=== PATIENT | male | born 1995 | race Caucasian/White ===

== ENCOUNTER 2016-04-03 13:48 | Emergency (ER) | payer OTHER ==
[~2016-04-03] VITALS: Ht 175.3 cm; Wt 63.5 kg
[2016-04-03 13:54] VITALS: BP 107/70
[2016-04-03] MEDS ORDERED: ZOFRAN ODT4 M1 SL (14:44)
[2016-04-03] MEDS ORDERED: CLONIDINE HCL0.1 MG PO (14:44)
--- NOTE | 2016-04-03 14:45 | ED GENERAL ADULT ---
History of Present Illness General Chief Complaint: ETOH/Drug Related Complaint Stated Complaint: "UM I WANT DETOX" HEROINE Source: patient, family Exam Limitations: no limitations Vital Signs & Intake/Output Vital Signs & Intake/Output Vital Signs Date Time Temp Pulse Resp B/P Pulse O2 O2 Flow FiO2 Ox Delivery Rate 04/03 1440 Room Air Room Air 04/03 1354 98.5 93 20 107/70 99 Room Air Allergies Coded Allergies: No Known Allergies (04/03/16) Reconcile Medications Clonidine HCl 0.1 MG TABLET 1 TAB PO BID PRN anxiety Ondansetron (Zofran Odt) 4 MG TAB.RAPDIS 1 TAB SL TID PRN nausea Triage Note: PT REQUEST HEROIN DETOX, STATES LAST USED LAST NIGHT. STATES HE USES 2 BAGS A DAY Triage Nurses Notes Reviewed? yes Onset: Gradual Duration: intermittent Timing: recent history Injury Environment: home Severity: moderate Severity Numbers: 7 No Modifying Factors: none HPI: Patient is a 21-year-old male coming into the emergency department requesting detox from heroin. He reports that his been using on and off for the past 7 months or so. Denies any other drug use. He reports that he states that heroin. Denies injecting. He feels anxious and he doesn't use. Uses about 2 bags a day when he is on a "nickerson". Denies any suicidal or homicidal ideation. Denies any nausea vomiting fever chills chest pain or shortness of breath. no History detox in the past. (SANGEETHA BERGMAN) Past History Travel History Traveled to [place] past 21 day No Medical History Any Pertinent Medical History? see below for history Psychiatric: substance abuse Blood Disorders: HIV Surgical History Surgical History: non-contributory Psychosocial History What is your primary language Liberian Tobacco Use: Current Daily Use Daily Tobacco Use Amount/Type: => 5 Cigarettes daily ETOH Use: occasional use Illicit Drug Use: heroin Family History Hx Contributory? No (SANGEETHA BERGMAN) Review of Systems Review of Systems Constitutional: Reports: no symptoms. Comments Review of systems: See HPI, All other systems negative. Constitutional, no chills fever or weight loss HEENT: No visual changes no sore throat no congestion Cardiovascular: No chest pain Skin, no jaundice no rashes Respiratory: No dyspnea cough sputum or hemoptysis GI: No nausea no vomiting : No dysuria No hematuria Muscle skeletal: no back pain, no neck pain, Neurologic: No numbness no confusion Psych: No stress anxiety Immunology: No splenectomy or history of AIDS (SANGEETHA BERGMAN) Physical Exam Physical Exam General Appearance: well developed/nourished, no apparent distress, alert, awake , comfortable Comments: Well-developed well-nourished person in no acute distress HEENT:Pupils equally round and reactive to light and accommodation. Nose is atraumatic. Gauged earlobes. Neck: Normal inspection Cardiovascular: Regular rate and rhythms no murmurs rubs or gallops, normal JVP Respiratory: No respiratory distress Extremity: No edema Neuro: Alert oriented x3 Skin: No appreciable rash on exposed skin, skin is warm and dry. Psych: Mood and affect is normal, memory and judgment is normal. Core Measures ACS in differential dx? No CVA/TIA Diagnosis: No Severe Sepsis Present: No Septic Shock Present: No (SANGEETHA BERGMAN) Progress Differential Diagnoses I considered the following diagnoses in my evaluation of the patient: Opiate abuse, opiate dependence Plan of Care: Unfortunately we do not offer detox from opiates here. Patient is not suicidal or homicidal. He was given a list of other facilities that do both inpatient and outpatient detox. He was given medications for withdrawal symptoms i.e. clonidine and Zofran. He is educated on signs and symptoms to return. Initial ED EKG: none (SANGEETHA BERGMAN) Departure Departure Time of Disposition: 1443 Disposition: HOME OR SELF CARE Condition: Stable Clinical Impression Primary Impression: Opiate abuse, episodic Ruled Out Impressions: Opiate abuse, continuous Referrals: GODFREY LOONEY,NAFISA Wooten (PCP/Family) Additional Instructions: Follow-up with recommendations given to you and the brochure for detox. Take clonidine and Zofran as prescribed if you develop any withdrawal symptoms. Return for worsening symptoms or concerns. Your prescriptions were sent to the [facility]. Departure Forms: Customer Survey General Discharge Information Prescriptions: Current Visit Scripts Clonidine HCl 1 TAB PO BID PRN anxiety #20 TAB Ondansetron (Zofran Odt) 1 TAB SL TID PRN nausea #10 TAB (SANGEETHA BERGMAN) PA/[employer]OLD MAKER P[employer]ER Co-Sign Statement Statement: ED Attending supervision documentation- [] I saw and evaluated the patient. I have also reviewed all the pertinent lab results and diagnostic results. I agree with the findings and the plan of care as documented in the PA's/MOLD MAKER PLASTER's documentation. [X] I have reviewed the ED Record and agree with the PA's/MOLD MAKER P[employer]ER's documentation. [] Additions or exceptions (if any) to the PAs/MOLD MAKER PLASTER's note and plan are summarized below: [] (ALEXANDRO LOONEY,EROS) Critical Care Note Critical Care Note Critical Care Time: non-applicable (CALVIN GILES,SANGEETHA)
== END 2016-04-03 15:03 ==
LOC: ERH 13:48
DX: F11.10 Opioid abuse, uncomplicated (principal)